=== PATIENT | female | born 1945 | race Caucasian/White ===

== ENCOUNTER → 2024-11-05 14:14 | Outpatient (REF) | payer OTHER, SELFPAY | LOC: WDC 14:14 | PROVIDERS: ATTENDING PHYSICIAN Family Medicine | DX: Z12.31 Encounter for screening mammogram for malignant neoplasm of breast (principal); E04.2 Nontoxic multinodular goiter; M81.0 Age-related osteoporosis without current pathological fracture | CPT/HCPCS: 76536; 77063; 77067 ==